=== PATIENT | male | born 1950 | race Caucasian/White ===

== ENCOUNTER 2021-12-05 08:31 | Outpatient (CLI) | payer OTHER, SELFPAY ==
[2021-12-05 14:24] LABS: Chloride* 104 mmol/L (96-114)
[2021-12-05 14:25] LABS: Potassium* 4.5 mmol/L (3.6-5.1); Sodium* 136 mmol/L (135-149)
[2021-12-05 14:27] LABS: Creatinine* 0.9 mg/dL (0.5-1.5); Estimated Glomerular Filt Rate 91 ml/min
[2021-12-05 14:28] LABS: Blood Urea Nitrogen* 24 mg/dL (7-30); Calcium* 9.4 mg/dL (8.4-10.6); Carbon Dioxide* 25 mmol/L (20-32); Glucose* 102 mg/dL (60-115)
[2021-12-05 14:51] LABS: PSA Screen* 2.57 ng/mL (0.10-4.00)
== END 2021-12-05 08:32 | disposition home or self-care (01) ==
PROVIDERS: PCP Family Medicine; Visit Provider Family Medicine
DX: Z00.00 Encounter for general adult medical examination without abnormal findings (principal); I10 Essential (primary) hypertension; E78.5 Hyperlipidemia, unspecified; Z80.42 Family history of malignant neoplasm of prostate
CPT/HCPCS: 80048; 84153

== ENCOUNTER 2022-12-21 08:01 | Outpatient (CLI) | payer OTHER, SELFPAY | END 2022-12-21 08:02 | disposition home or self-care (01) | PROVIDERS: PCP Family Medicine; Visit Provider Family Medicine | DX: I10 Essential (primary) hypertension (principal); E78.5 Hyperlipidemia, unspecified; Z12.5 Encounter for screening for malignant neoplasm of prostate; Z13.0 Encounter for screening for diseases of the blood and blood-forming organs and certain disorders involving the immune mechanism | CPT/HCPCS: 80048; 84153 ==

== ENCOUNTER 2025-03-11 13:16 | Outpatient (CLI) | payer OTHER, SELFPAY ==
--- NOTE | 2025-03-11 14:00 | CRLHL7_ITS ---
For Patients: As a result of the Century Cures Act, medical imaging exams and procedure reports are released immediately into your electronic medical record. You may view this report before your referring provider. If you have questions, please contact your health care provider. XR DXA BONE MINERAL DENSITY (BMD) Current height (in): 68.0 Weight (lb): 175.0. Menopause age: Not applicable. Ethnicity: White. Reason for exam: Screening for osteoporosis. 1. Have you had a previous hip or vertebral fracture? No. 2. Have you had any fractures during your adult life which did not result from significant trauma (e.g., auto accident)? No. 3. Did either of your parents have a hip fracture? No. 4. Do you smoke? No. 5. Have you ever taken Glucocorticoids? No. 6. Do you have rheumatoid arthritis? No. 7. Do you have secondary osteoporosis? No. 8. Do you drink 3 or more alcoholic drinks per day? No. 9. Are you being treated for osteoporosis? No. 10. Have you ever taken any of the following medications: Actonel, Evista, Fosamax, Miacalcin, Reclast, Boniva, Forteo, HRT (i.e. estrogen/hormone therapy), Protelos, Prolia, Vitamin D, Calcium, other ??? please specify. ANSWER: Yes. 11. Do you have any of the following medical conditions: Anorexia or bulimia, asthma or emphysema, end stage renal disease, hyperparathyroidism, any seizure disorders, cancer, inflammatory bowel diseases, hysterectomy, other ??? please specify. ANSWER: No. 12. What was your maximum height (inches)? 68. 13. Do you perform weight bearing exercise regularly? Yes. 14. Do you regularly consume dairy products? No. 15. Do you drink caffeinated beverages? No. TECHNIQUE: Bone mineral density study was performed using the [employer]. FINDINGS: The results of the study expressed as bone mineral density (BMD) are as follows: Lumbar spine L2 to L3: BMD: 1.179 g/cm2. T-score: 0.7. Z-score: 1.8 Neck Left: BMD: 0.773 g/cm2. T-score: -1.2. Z-score: 0.2 Right: BMD: 0.770 g/cm2. T-score: -1.2. Z-score: 0.1 Total Left: BMD: 0.993 g/cm2. T-score: -0.3. Z-score: 0.5 Right: BMD: 1.020 g/cm2. T-score: -0.1. Z-score: 0.7 IMPRESSION: Osteopenia. FRAX 10-year Fracture Risk Major Osteoporotic Fracture: 5.8 percent Hip Fracture: 1.4 percent Reported Risk Factors: [place] () Neck BMD = 0.770, BMI = 26.6 Brett Us M.D. Diagnostic Radiologist [email or web address] Transcribed: 10:45 am DW/Dictated by: Brett Us MD @ 03/12/2025 9:44:00 AM (Electronically Signed)
== END 2025-03-11 13:17 | disposition home or self-care (01) ==
LOC: RAD 13:16
PROVIDERS: PCP Family Medicine; Visit Provider Family Medicine
DX: Z13.820 Encounter for screening for osteoporosis (principal); M85.89 Other specified disorders of bone density and structure, multiple sites
CPT/HCPCS: 77080